=== PATIENT | male | born 1965 | race Caucasian/White ===

== ENCOUNTER 2021-07-13 15:19 | Emergency (ER) | payer MEDICAID ==
--- NOTE | 2021-07-13 15:38 | NUR ---
CALLED FOR TRIAGE SEVERAL TIMES, NO ANSWER, CHECKED LOBBY, WILL ATTEMPT AGAIN.
--- NOTE | 2021-07-13 15:50 | NUR ---
SECOND ATTEMPT, NO ANSWER WHEN PT CALLED THROUGHOUT ER WAITING ROOM
--- NOTE | 2021-07-13 15:55 | NUR ---
Patient left without being seen.
== END 2021-07-13 15:55 | disposition left against medical advice (07) ==
LOC: SED 15:19
DX: I10 Essential (primary) hypertension (principal); R73.9 Hyperglycemia, unspecified; Z53.21 Procedure and treatment not carried out due to patient leaving prior to being seen by health care provider